=== PATIENT | female | born 1990 | race Caucasian/White ===

== ENCOUNTER 2019-04-13 17:56 | Outpatient (CLI) | payer OTHER ==
[2019-04-13] MEDS: ACETAMINOPHEN 325 MG TAB PO (21:28)
[2019-04-13 22:09] LABS: ADD UMIC NO; UR ASCORBIC ACID 40 mg/dL (NEGATIVE); UR BILIRUBIN (Dip) NEGATIVE (NEGATIVE); UR BLOOD (Dip) NEGATIVE (NEGATIVE); UR CLARITY SLIGHTLY CLOUDY (CLEAR); UR COLOR YELLOW (YELLOW); UR GLUCOSE (Dip) NEGATIVE (NEGATIVE); UR KETONES (Dip) 1+ mg/dL (NEGATIVE); UR LEUKOCYTE ESTERASE (Dip) NEGATIVE Leu/ul (NEGATIVE); UR MUCUS FEW /HPF (NONE SEEN); UR NITRITE (Dip) NEGATIVE (NEGATIVE); UR RBC 0 /HPF (0-5); UR SPECIFIC GRAVITY (Dip) 1.026 (1.003-1.030); UR SQUAMOUS EPITHELIAL CELL FEW /HPF (FEW); UR TOTAL PROTEIN (Dip) NEGATIVE (NEGATIVE); UR UROBILINOGEN (Dip) NEGATIVE (NEGATIVE); UR WBC 2 /HPF (0-5)
== END 2019-04-13 22:35 | disposition home or self-care (01) ==
LOC: OBT 17:56 → L-D 17:58 → OBT 22:35
DX: O41.03X0 Oligohydramnios, third trimester, not applicable or unspecified (principal); Z3A.38 38 weeks gestation of pregnancy
CPT/HCPCS: 76818; 81001; 81003

== ENCOUNTER 2019-04-16 05:22 | Inpatient (IN) | payer OTHER ==
[2019-04-16] MEDS ORDERED: MISOPROSTOL 200 MCG TAB PR ×2 (06:00→10:30)
[2019-04-16] MEDS ORDERED: CARBOPROST 250 MCG INJ IM ×2 (06:00→10:30)
[2019-04-16] MEDS ORDERED: OXYTOCIN 30 UNITS/LR 500 ML IV ×2 (06:00→10:30)
[2019-04-16] MEDS ORDERED: METHYLERGONOVINE 0.2 MG INJ IM ×2 (06:00→10:30)
[2019-04-16] MEDS: LACTATED RINGER'S 1,000 ML IV ×2 (06:02→07:39)
[2019-04-16 06:11] LABS: ADD MAN DIFF? NO
[2019-04-16 06:15] LABS: WHITE BLOOD COUNT 8.7 10^3/ul (4.8-10.8)
[2019-04-16 06:15] LABS: BASOPHILS % 0.3 % (0.0-2.0); EOSINOPHILS # 0.1 10^3/ul (0.0-0.5); HEMATOCRIT 37.8 % (37.0-47.0); HEMOGLOBIN 12.6 g/dl (12.0-16.0); LYMPHOCYTES # 1.8 10^3/ul (0.8-2.9); LYMPHOCYTES % 20.3 % (15.0-51.0); MEAN CORPUSCULAR HEMOGLOBIN 30.3 pg (29.0-33.0); MEAN CORPUSCULAR HGB CONC 33.3 g/dl (32.0-37.0); MEAN CORPUSCULAR VOLUME 90.9 fl (82.0-101.0); MEAN PLATELET VOLUME 10.5 fl (7.4-10.4); MONOCYTE # 0.6 10^3/ul (0.3-0.9); MONOCYTES % 7.1 % (0.0-11.0); NEUTROPHIL # 6.2 10^3/ul (1.6-7.5); PLATELET COUNT 212 10^3/UL (140-415); RED BLOOD COUNT 4.16 10^6/ul (4.20-5.40); RED CELL DISTRIBUTION WIDTH 12.8 % (11.5-14.5)
[2019-04-16 06:34] LABS: INR 0.88; PT RATIO 0.9
[2019-04-16 06:35] LABS: PARTIAL THROMBOPLASTIN TIME 33.4 Sec (23.0-35.0)
[2019-04-16 07:11] LABS: HEPATITIS B SURFACE ANTIGEN NEGATIVE (NEGATIVE)
[2019-04-16] MEDS: CITRIC ACID/NA CITRATE 30 ML CUP PO (07:39)
[2019-04-16] MEDS: ONDANSETRON 4 MG INJ IV ×2 (07:39→13:30)
[2019-04-16] MEDS ORDERED: OXYTOCIN 30 UNITS/LR 500 ML BAG IV (08:00)
[2019-04-16] MEDS ORDERED: PHENYLephrine (100 MCG/ML) 10ML SYG (08:12)
[2019-04-16] MEDS ORDERED: morphine SULFATE/PF (10 MG/10 ML) INJ (08:12)
[2019-04-16] MEDS ORDERED: OXYTOCIN 10 UNIT INJ (08:12)
[2019-04-16] MEDS ORDERED: DEXAMETHASONE 4 MG/ML 1 ML INJ (08:25)
[2019-04-16] MEDS ORDERED: METOCLOPRAMIDE 10 MG INJ (08:25)
[2019-04-16] MEDS ORDERED: KETOROLAC 30 MG INJ (08:25)
[2019-04-16] MEDS: CEFAZOLIN 2 GM/50 ML (PMX) 50 ML IVPB ×3 (09:01→21:40)
[2019-04-16] MEDS ORDERED: ACETAMINOPHEN 500 MG TAB PO (09:30)
[2019-04-16] MEDS ORDERED: NALBUPHINE HCL (10 MG/1 ML) INJ IV (09:30)
[2019-04-16] MEDS ORDERED: NALOXONE (0.4 MG/ML) INJ IV (09:30)
[2019-04-16] MEDS ORDERED: HYDROCODONE/APAP (5/325) TAB PO (09:30)
[2019-04-16] MEDS ORDERED: HYDROmorphONE 0.5 MG/0.5 ML SYG IV ×2 (09:30)
[2019-04-16] MEDS ORDERED: DIPHENHYDRAMINE 50 MG INJ IV (09:30)
[2019-04-16] MEDS ORDERED: morphine 2 MG INJ IV ×2 (09:30)
[2019-04-16] MEDS: OXYTOCIN 30 UNITS/LR 500 ML IV ×2 (09:45→13:41)
[2019-04-16] MEDS ORDERED: NACL 0.9% 3 ML SYG IV (10:30)
[2019-04-16] MEDS: LANOLIN HPA 1 PKT TOP (13:29)
[2019-04-16 15:09] LABS: RAPID PLASMA REAGIN NONREACTIVE (NR)
[2019-04-17] MEDS: KETOROLAC 30 MG INJ IV (05:24)
[2019-04-17] MEDS: CEFAZOLIN 2 GM/50 ML (PMX) 50 ML IVPB (05:32)
[2019-04-17 06:46] LABS: ADD MAN DIFF? NO
[2019-04-17 06:50] LABS: WHITE BLOOD COUNT 10.3 10^3/ul (4.8-10.8)
[2019-04-17 06:50] LABS: RED BLOOD COUNT 3.36 10^6/ul (4.20-5.40)
[2019-04-17 06:51] LABS: BASOPHILS % 0.3 % (0.0-2.0); EOSINOPHILS % 0.4 % (0.0-7.0); HEMATOCRIT 30.8 % (37.0-47.0); HEMOGLOBIN 10.2 g/dl (12.0-16.0); LYMPHOCYTES # 1.8 10^3/ul (0.8-2.9); LYMPHOCYTES % 17.1 % (15.0-51.0); MEAN CORPUSCULAR HEMOGLOBIN 30.4 pg (29.0-33.0); MEAN CORPUSCULAR HGB CONC 33.1 g/dl (32.0-37.0); MEAN CORPUSCULAR VOLUME 91.7 fl (82.0-101.0); MEAN PLATELET VOLUME 10.6 fl (7.4-10.4); MONOCYTE # 0.8 10^3/ul (0.3-0.9); MONOCYTES % 7.9 % (0.0-11.0); NEUTROPHIL # 7.6 10^3/ul (1.6-7.5); NEUTROPHILS % 73.9 % (39.0-77.0); PLATELET COUNT 184 10^3/UL (140-415); RED CELL DISTRIBUTION WIDTH 12.8 % (11.5-14.5)
[2019-04-17] MEDS: LACTATED RINGER'S 1,000 ML IV (07:23)
[2019-04-17] MEDS: FERROUS SULFATE (EC) 325 MG TAB PO ×2 (11:15→21:49)
[2019-04-17] MEDS: IBUPROFEN 800 MG TAB PO ×2 (13:26→21:49)
[2019-04-17] MEDS: OXYCODONE/ACETAMINOPHEN (5/325) TAB PO ×2 (16:00→20:13)
[2019-04-18] MEDS: OXYCODONE/ACETAMINOPHEN (5/325) TAB PO ×3 (03:27→19:56)
[2019-04-18] MEDS: IBUPROFEN 800 MG TAB PO ×3 (05:35→22:22)
[2019-04-18] MEDS: FERROUS SULFATE (EC) 325 MG TAB PO ×2 (09:29→21:14)
[2019-04-19] MEDS: IBUPROFEN 800 MG TAB PO ×2 (05:38→14:55)
[2019-04-19] MEDS: FERROUS SULFATE (EC) 325 MG TAB PO (09:19)
[2019-04-19] MEDS: OXYCODONE/ACETAMINOPHEN (5/325) TAB PO (12:13)
[2019-04-19] MEDS: LANOLIN HPA 1 PKT TOP ×2 (12:13)
== END 2019-04-19 15:40 | disposition home or self-care (01) | DRG 785 ==
LOC: L-D 05:22 → PP1 12:18
PROVIDERS: Obstetrics & Gynecology
PROC: 10D00Z1 Extraction of Products of Conception, Low, Open Approach (ICD-10-PCS; principal; 2019-04-16 07:30)
PROC: 0UB70ZZ Excision of Bilateral Fallopian Tubes, Open Approach (ICD-10-PCS; 2019-04-16 07:30)
DX: O34.211 Maternal care for low transverse scar from previous cesarean delivery (principal); Z3A.39 39 weeks gestation of pregnancy; Z37.0 Single live birth; Z30.2 Encounter for sterilization
CPT/HCPCS: 85025; 85610; 85730; 86592; 86850; 86900; 86901; 87340; 88302; 99464

== ENCOUNTER 2019-04-27 22:49 | Emergency (ER) | payer OTHER ==
[2019-04-27] MEDS: SOD CHLORIDE 0.9% 1,000 ML IV (23:39)
[2019-04-27 23:48] LABS: ADD MAN DIFF? NO
[2019-04-27 23:50] LABS: WHITE BLOOD COUNT 7.7 10^3/ul (4.8-10.8)
[2019-04-27 23:50] LABS: BASOPHILS % 0.5 % (0.0-2.0); EOSINOPHILS # 0.3 10^3/ul (0.0-0.5); EOSINOPHILS % 3.7 % (0.0-7.0); HEMATOCRIT 36.8 % (37.0-47.0); HEMOGLOBIN 12.2 g/dl (12.0-16.0); LYMPHOCYTES # 1.7 10^3/ul (0.8-2.9); LYMPHOCYTES % 22.1 % (15.0-51.0); MEAN CORPUSCULAR HEMOGLOBIN 30.8 pg (29.0-33.0); MEAN CORPUSCULAR HGB CONC 33.2 g/dl (32.0-37.0); MEAN CORPUSCULAR VOLUME 92.9 fl (82.0-101.0); MONOCYTE # 0.5 10^3/ul (0.3-0.9); MONOCYTES % 6.7 % (0.0-11.0); NEUTROPHIL # 5.1 10^3/ul (1.6-7.5); NEUTROPHILS % 66.5 % (39.0-77.0); PLATELET COUNT 316 10^3/UL (140-415); RED BLOOD COUNT 3.96 10^6/ul (4.20-5.40); RED CELL DISTRIBUTION WIDTH 12.1 % (11.5-14.5)
[2019-04-28 00:09] LABS: INR 0.85; PROTIME 11.7 Sec (11.9-14.9); PT RATIO 0.9
[2019-04-28 00:10] LABS: PARTIAL THROMBOPLASTIN TIME 33.4 Sec (23.0-35.0)
[2019-04-28 00:19] LABS: ALANINE AMINOTRANSFERASE 42 IU/L (13-69); ALBUMIN 4.3 g/dl (3.3-4.9); ALBUMIN/GLOBULIN RATIO 1.19; ALKALINE PHOSPHATASE 97 IU/L (42-121); ANION GAP 8 (5-13); ASPARTATE AMINO TRANSFERASE 25 IU/L (15-46); BILIRUBIN,INDIRECT 0.3 mg/dl (0-1.1); BILIRUBIN,TOTAL 0.3 mg/dl (0.2-1.3); BLOOD UREA NITROGEN 15 mg/dl (7-20); CALCIUM 9.7 mg/dl (8.4-10.2); CARBON DIOXIDE 30 mmol/L (21-31); CHLORIDE 105 mmol/L (97-110); Estimated GFR > 60 mL/min (>60); GLUCOSE 100 mg/dl (70-220); POTASSIUM 3.9 mmol/L (3.5-5.1); SODIUM 143 mmol/L (135-144); TOTAL PROTEIN 7.9 g/dl (6.1-8.1)
[2019-04-28] MEDS: IOHEXOL 300MG/ML 150 ML BTL (01:04)
[2019-04-28] MEDS: SOD CHLORIDE 0.9% 100 ML (01:04)
== END 2019-04-28 02:09 | disposition home or self-care (01) ==
LOC: FTE 04-28 02:09
DX: O72.2 Delayed and secondary postpartum hemorrhage (principal); O90.89 Other complications of the puerperium, not elsewhere classified; G89.18 Other acute postprocedural pain
CPT/HCPCS: 36415; 74177; 80053; 85025; 85610; 85730; 96360; 96361; 99285-25